=== PATIENT | male | born 2000 | race Caucasian/White ===

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

== ENCOUNTER 2023-10-11 03:24 | Emergency (ER) | payer OTHER, SELFPAY ==
[2023-10-11 03:26] VITALS: BP 193/81; PULSE 65; RESP 18; TEMP 36.4; O2SAT 99; BMI 25.4
--- NOTE | 2023-10-11 03:31 | CT_ITS ---
EXAM: CT Abdomen And Pelvis W/O Contrast Injection HISTORY: Kidney Stone TECHNIQUE: Routine protocol CT abdomen and pelvis. IV Contrast: None.. Oral contrast: None. RADIATION DOSAGE (If Supplied By Facility): CTDIvol = ( 7.39 ) mGy, DLP = ( 385.69 ) mGycm Individualized dose optimization techniques were used for this CT. COMPARISON: None. LIMITATIONS: None. FINDINGS: LOWER CHEST: Included lung bases are clear. LIVER: Grossly unremarkable. GALLBLADDER AND BILIARY TREE: Grossly unremarkable. PANCREAS: Grossly unremarkable. SPLEEN: Grossly unremarkable. ADRENAL GLANDS: Grossly unremarkable. KIDNEYS AND URETERS: There is a 2 mm calculus in the distal right ureter at the ureterovesical junction. The right ureter is dilated with mild right hydronephrosis and perinephric and periureteral stranding. No other definite calculi demonstrated. No hydronephrosis on the left. PERITONEUM: No free air. No free fluid. BOWEL: No bowel obstruction. APPENDIX: Visualized and unremarkable. No evidence of acute appendicitis. VESSELS: Abdominal aorta is normal caliber. REPRODUCTIVE ORGANS: Grossly unremarkable URINARY BLADDER: Minimally distended. ABDOMINAL WALL: Unremarkable. BONES: No acute abnormalities. CT/Abdomen/Pelvis without Cont IMPRESSION: Distal right ureteral calculus with mild right hydroureteronephrosis. Electronically Signed: Tessa Flowers MD at 4:32 EDT ,
--- NOTE | 2023-10-11 03:32 | ED.VIS.GI ---
HPI HPI - GI History of Present Illness Chief Complaint: Flank Pain Informant: patient and parent (mother, father) Abdominal Pain/Flank Pain Onset: Hours (3) Context: Sudden Onset Timing: - (one episode earlier, resolved, now back again) Quality: - (throbbing) Location: Right Flank (currently just in back) Current Severity: Severe Maximum Severity: Severe Worsened by: Nothing Relieved by: Nothing Nausea/Vomiting/Emesis GI Symptom: Positive for Nausea and Vomiting Associated Symptoms Associated Symptoms: Positive for Urgency; Negative for Dysuria, Frequency or Hematuria Narrative Narrative: Sudden onset of right flank pain this evening, was on the way to the hospital when the pain resolved, they went home and then it returned and has been persistent along with nausea and vomiting. Never had this before. No syncope, fevers or chills, hematuria. PFSH PFSH Medical History (Updated 10/11/23 @ 04:[address] Bill Fischer MD) Asthma Back pain Fatigue H/O bronchitis HISTORY OF TIGHT ROPE SURGERY OF R ANKLE Neck pain Seasonal allergies Home Medications ondansetron 8 mg disintegrating tablet 8 mg PO Q8H PRN nausea and vomiting #12 tabs 10/11/23 [Rx Last Taken Unknown] oxycodone-acetaminophen 5 mg-325 mg tablet 1 tab PO Q4H PRN Pain 3 days #15 TABLETS 10/11/23 [Rx Last Taken Unknown] Allergy/AdvReac Type Severity Reaction Status Date / Time No Known Allergies Allergy Verified 10/11/23 03:25 Family History Father Asthma Grandmother CAD (coronary artery disease) Hypertension Grandfather Leukemia Myocardial infarction Mother Depression Sister Depression Surgical History (Updated 10/11/23 @ 03:[address] Bill Fischer MD) tight rope surgery right ankle [place] teeth extracted Social History Smoking Status: Never smoker alcohol intake: never substance use type: marijuana what type of physical activity do you participate in: weight training frequency: 5-6 times per week ROS ROS ED Constitutional Constitutional ED: Reports sweats; Denies chills or fever(s) Eyes Eyes: Denies change in vision or diplopia ENT ENT ED: Denies rhinorrhea or sore throat Cardiovascular Cardiovascular: Denies chest pain or palpitations Respiratory/Chest Respiratory/Chest: Denies cough or dyspnea Gastrointestinal Gastrointestinal: Reports abdominal pain, nausea and vomiting; Denies diarrhea Genitourinary Genitourinary ED: Reports urinary urgency; Denies dysuria or hematuria Musculoskeletal Musculoskeletal: Reports back pain; Denies neck pain Integumentary Denies abscess or rash Neurologic Neurologic: Denies headache(s), paresthesias or weakness Psychiatric Psychiatric: Denies anxiety or suicidal thoughts EXAM Physical Exam Const Vital Signs: 10/11/23 03:26 Temperature 97.5 F L Temperature Source Temporal Pulse Rate 65 Respiratory Rate 18 Blood Pressure 193/81 H Blood Pressure Mean 118 Pulse Ox 99 Oxygen Delivery Method Room Air Positive well nourished and well developed Constitutional Narrative: painful distress General Appearance ED: well developed HEENT Reports moist mucous membranes normocephalic and atraumatic Eyes PERRL and EOMs intact bilaterally Neck full ROM and supple Resp normal respiratory effort and clear to auscultation bilaterally Cardio regular rate, regular rhythm and no murmurs GI non-tender and non-distended Auscultation: normoactive bowel sounds Palpation: soft Back/Spine General Back: CVA tenderness right and other FROM Extremity normal to inspection General Extremety ED: Negative for edema, pulses abnormal or tenderness General Extremity: Negative for edema or pulses abnormal Neuro oriented x3, CN's II-XII intact bilaterally, no sensory deficits noted and gait normal Sensorium / Orientation: awake and alert Motor Exam: strength 5/5 throughout Psych mental status grossly normal and thought process normal Skin no rashes or lesions noted and no wounds Skin Narrative: diaphoretic MDM MDM MDM Narrative Medical decision making narrative: Suspect kidney stone here. Patient has never had one before, so CT was obtained to further evaluate, I reviewed the images and the report and I agree with it. It is consistent with a small 2 mm stone at the right UVJ, which explains the patient's symptoms. His pain is much better after Toradol and morphine, but even after Zofran he is still vomiting so additionally given Reglan. Much better after that, and did not require any other treatments while in the emergency department. Urinalysis shows no signs of acute infection, there is microscopic hematuria as expected. Discharged home with prescription analgesic, antiemetic, and urine strainers with instructions for use. Counseled on reasons to return. Lab Data Attestation: I reviewed the patient's lab results. Labs: Laboratory Results - last 24 hr 10/11/23 05:00 Urine Color Yellow Urine Clarity Clear Urine pH 6.5 Ur Specific [place] 1.020 Urine Protein 30 H Urine Glucose (UA) Normal Urine Ketones 15 H Urine Occult Blood 250 H Urine Nitrite Negative Urine Bilirubin Negative Urine Urobilinogen Normal Ur Leukocyte Esterase 25 H Urine RBC 0-5 SEEN Urine WBC 0-5 SEEN Ur Squamous Epith Cells 0 SEEN Urine Bacteria 0 SEEN Urine Mucus 0 SEEN Radiography Diagnostic Testing: Clinical Impression(s) from Imaging Studies Abdomen/Pelvis CT 10/11/23 03:31 IMPRESSION: Distal right ureteral calculus with mild right hydroureteronephrosis. Electronically Signed: Tessa Flowers MD at 4:32 EDT , Discharge Plan Triage Chief Complaint: Flank Pain ED Provider: Bill Fischer Dx/Rx/DC Orders Clinical Impression: Ureterolithiasis, Renal colic on right side Instructions: ED Urine Strainer, ED Kidney Stone with Pain Prescriptions: New oxycodone-acetaminophen [oxycodone-acetaminophen] 5-325 mg tablet 1 tab PO Q4H PRN (Reason: Pain) 3 Days Qty: 15 0RF ondansetron 8 mg tablet,disintegrating 8 mg PO Q8H PRN (Reason: nausea and vomiting) Qty: 12 0RF Primary Care Provider: Michelle Garcia Referrals: Michelle Garcia MD [Primary Care Provider] - As Needed (Or return to ER for intractable symptoms) Disposition Disposition: Home, Self Care
[2023-10-11] MEDS: Ondansetron 4 MG/2 ML Vial IV (03:41)
[2023-10-11] MEDS: Ketorolac 30 MG/ML Syringe IV (03:41)
[2023-10-11] MEDS: Morphine 4 MG/ML Syringe IV (03:42)
[2023-10-11] MEDS: Metoclopramide 10 MG/2 ML Vial 5 MG IV (04:19)
[2023-10-11 05:07] LABS: Bacteria 0 SEEN /hpf (None Seen); Mucous, Urine 0 SEEN /hpf (<or=2+); Squamous Epithelial Cells - UA 0 SEEN /hpf (0-5)
[2023-10-11 05:17] LABS: Color, Urine Yellow (Yellow); Glucose, Dipstick Normal (Normal); Ketone-Dipstick 15 mg/dl (Negative); Leukocyte Esterase-Dipstick 25 /ul (Negative); Nitrite-Dipstick Negative (Negative); Occult Blood-Urine 250 /ul (Negative); Protein-Dipstick 30 mg/dl (Negative); Urine Bilirubin Dipstick Negative (Negative); Urine Clarity Clear (Clear); Urine Urobilinogen Normal (Normal); Urine pH 6.5 (5.0 - 8.0)
[2023-10-11 05:25] VITALS: BP 168/105; PULSE 94; RESP 18; O2SAT 99
[2023-10-11 05:54] LABS: Red Blood Cells-Urine 0-5 SEEN /hpf (0-5); White Blood Cells 0-5 SEEN /hpf (0-5)
[2023-10-11 06:24] VITALS: BP 168/105; PULSE 94; RESP 18; TEMP 36.1; O2SAT 99
== END 2023-10-11 06:25 | disposition home or self-care (01) ==
PROVIDERS: Emergency Provider Emergency Medicine; PCP Internal Medicine; Visit Provider Emergency Medicine
DX: N13.2 Hydronephrosis with renal and ureteral calculous obstruction (principal)
CPT/HCPCS: 74176; 81001; 96374; 96375; 99283; A4216; J2405

== ENCOUNTER → 2024-09-27 | Outpatient (CLI) | payer OTHER, SELFPAY ==
[2024-09-27 16:27] LABS: Hepatitis B Surface Antibody Nonreactive; Hepatitis B Surface Antigen Nonreactive (Nonreactive); Hepatitis C Antibody Nonreactive (Nonreactive)
[2024-09-27 19:30] LABS: HIV Nonreactive (Nonreactive)
[2024-09-29 08:08] LABS: Hepatitis B Core Ab Total Negative (Negative)
== END | disposition home or self-care (01) ==
LOC: BIMLAB 11:33
PROVIDERS: PCP Physician Assistant; Referring Provider Physician Assistant; Visit Provider Physician Assistant
DX: S61.239A Puncture wound without foreign body of unspecified finger without damage to nail, initial encounter (principal); W46.0XXA Contact with hypodermic needle, initial encounter
CPT/HCPCS: 36415; 86703; 86704; 86706; 86803; 87340